=== PATIENT | female | born 1990 | race Caucasian/White ===

== ENCOUNTER → 2024-01-22 07:19 | Outpatient (REF) | payer OTHER, SELFPAY | LOC: HWRAD 07:19 | PROVIDERS: ATTENDING PHYSICIAN Internal Medicine Gastroenterology; FAMILY PHYSICIAN Nurse Practitioner Adult Health | DX: R16.0 Hepatomegaly, not elsewhere classified (principal); D18.03 Hemangioma of intra-abdominal structures; K82.4 Cholesterolosis of gallbladder | CPT/HCPCS: 76705 ==

== ENCOUNTER → 2024-02-01 11:08 | Outpatient (REF) | payer OTHER, SELFPAY | LOC: HWRAD 11:08 | DX: R31.9 Hematuria, unspecified (principal); R10.30 Lower abdominal pain, unspecified; N20.0 Calculus of kidney | CPT/HCPCS: 74176 ==

== ENCOUNTER → 2024-07-08 12:51 | Outpatient (REF) | payer OTHER, SELFPAY | LOC: HWRAD 12:51 | PROVIDERS: ATTENDING PHYSICIAN Obstetrics & Gynecology; FAMILY PHYSICIAN Nurse Practitioner Adult Health | DX: Z34.00 Encounter for supervision of normal first pregnancy, unspecified trimester (principal); K82.4 Cholesterolosis of gallbladder; D18.03 Hemangioma of intra-abdominal structures; Z98.891 History of uterine scar from previous surgery; Z34.80 Encounter for supervision of other normal pregnancy, unspecified trimester | CPT/HCPCS: 76700 ==

== ENCOUNTER 2024-11-24 19:27 | Observation (INO) | payer OTHER, SELFPAY ==
[2024-11-24 19:50] VITALS: BP 118/77; BMI 29.7
[2024-11-24] MEDS: LR 1000 IV (20:30)
[2024-11-24 21:03] LABS: Urine Character Clear (Clear)
[2024-11-24 21:10] LABS: Hematocrit 38.6 % (37.0-47.0); Hemoglobin 12.9 g/dL (12.0-16.0); Mean Corp Hgb Conc. 33.4 g/dL (33.0-37.0); Mean Corpuscular Volume 86.9 fL (81.0-99.0); Nucleated Red Blood Cells % 0 %; Platelet Count 136 10^3/uL (130-400); Red Cell Dist. Width 14.8 % (11.5-14.5)
[2024-11-24 21:20] LABS: ALT (SGPT) 16 U/L (0-35); AST (SGOT) 22 U/L (14-36); Albumin 3.6 g/dl (3.5-5.0); Alkaline Phosphatase 166 U/L (38-126); Blood Urea Nitrogen 6 mg/dl (7-17); Calcium 9.2 mg/dl (8.4-10.2); Carbon Dioxide 20 mmol/L (22-30); Chloride 107 mmol/L (98-107); Estimated Creatinine Clearance 89 ml/min; Glucose 112 mg/dl (70-99); Potassium 4.0 mmol/L (3.5-5.1); Sodium 133 mmol/L (135-145); Total Protein 6.0 g/dl (6.3-8.2); Urine Red Blood Cell 0-2 /HPF (0-2); Urine Squamous Cell >30 /LPF (Few); Urine White Cell 0-2 /HPF (0-5); eGFR > 60.00
== END 2024-11-24 22:41 | disposition home or self-care (01) ==
LOC: LDRP 19:27
PROVIDERS: ADMITTING PHYSICIAN Obstetrics & Gynecology
DX: O26.893 Other specified pregnancy related conditions, third trimester (principal); R10.2 Pelvic and perineal pain; Z3A.38 38 weeks gestation of pregnancy; R10.9 Unspecified abdominal pain
CPT/HCPCS: 80053; 81003; 81015; 85025; 86850; 86900; 86901; G0378